=== PATIENT | female | born 1945 | race Caucasian/White ===

== ENCOUNTER 2016-11-23 15:00 | Outpatient (RCR) | payer MEDICARE | END 2016-11-24 12:48 | disposition home or self-care (01) | LOC: WSPT 15:00 | DX: M25.511 Pain in right shoulder (principal) | CPT/HCPCS: G0283-GP ==

== ENCOUNTER → 2017-01-18 | Outpatient (CLI) | payer MEDICARE | LOC: MC.RAD 11:00 | DX: Z12.31 Encounter for screening mammogram for malignant neoplasm of breast (principal) ==

== ENCOUNTER → 2018-02-15 | Outpatient (CLI) | payer MEDICARE | LOC: MC.RAD 08:14 | DX: Z12.31 Encounter for screening mammogram for malignant neoplasm of breast (principal) ==

== ENCOUNTER → 2019-04-25 | Outpatient (CLI) | payer MEDICARE | LOC: MC.RAD 10:56 | DX: Z12.31 Encounter for screening mammogram for malignant neoplasm of breast (principal) ==

== ENCOUNTER → 2020-06-06 | Outpatient (CLI) | payer MEDICARE | LOC: MC.RAD 13:45 | DX: Z12.31 Encounter for screening mammogram for malignant neoplasm of breast (principal) ==

== ENCOUNTER → 2021-07-31 | Outpatient (CLI) | payer MEDICARE | LOC: MC.RAD 14:00 | DX: Z12.31 Encounter for screening mammogram for malignant neoplasm of breast (principal) ==